=== PATIENT | female | born 1945 | race Hispanic/Latino ===

== ENCOUNTER → 2017-04-12 | Outpatient (CLI) | payer MEDICARE, OTHER ==
[2017-04-12 18:01] LABS: BASOPHILS # (AUTO) 0.1 (0.0-0.1); BASOPHILS % 0.9 % (0.0-1.0); EOSINOPHILS # (AUTO) 0.1 (0.0-0.4); EOSINOPHILS % 1.2 % (0.0-6.0); HEMATOCRIT 40.5 % (34.2-44.1); HEMOGLOBIN 13.3 g/dL (12.0-16.0); LYMPHOCYTES % 29.1 % (18.0-39.1); MEAN CORPUSCULAR HEMOGLOBIN 29.8 pg (28-32); MEAN CORPUSCULAR HGB CONC 32.8 g/dL (31-35); MEAN CORPUSCULAR VOLUME 90.6 fL (81-99); MONOCYTES # (AUTO) 0.6 (0.2-0.8); MONOCYTES % 9.6 % (4.4-11.3); NEUTROPHILS # (AUTO) 3.9 (2.1-6.9); NEUTROPHILS % 58.8 % (38.7-80.0); PLATELET COUNT 231 x10e3/uL (140-360); RED BLOOD COUNT 4.47 x10e6/uL (3.6-5.1); RED CELL DISTRIBUTION WIDTH 13.2 % (11.7-14.4)
[2017-04-12 18:27] LABS: INR 0.86; PROTHROMBIN TIME 12.2 seconds (11.9-14.5)
[2017-04-12 18:28] LABS: PARTIAL THROMBOPLASTIN TIME 29.4 seconds (23.8-35.5)
[2017-04-12 18:36] LABS: ALANINE AMINOTRANSFERASE 26 IU/L (0-55); ALBUMIN 4.5 g/dL (3.5-5.0); ALBUMIN/GLOBULIN RATIO 1.3 (0.8-2.0); ALKALINE PHOSPHATASE 89 IU/L (40-150); ANION GAP 13.7 mmol/L (8-16); BLOOD UREA NITROGEN 21 mg/dL (7-26); BUN/CREATININE RATIO 27 (6-25); CALCIUM 9.1 mg/dL (8.4-10.2); CARBON DIOXIDE 27 mmol/L (22-29); CHLORIDE 104 mmol/L (98-107); CREATININE, SERUM 0.77 mg/dL (0.57-1.11); EST GLOMERULAR FILTRATION RATE > 60 ML/MIN (60-); GLUCOSE 90 mg/dL (74-118); POTASSIUM 3.7 mmol/L (3.5-5.1); SODIUM 141 mmol/L (136-145)
[2017-04-12 18:43] LABS: HIV 1&2 AB SCREEN NON-REACTIVE (NONREACTIVE)
--- NOTE | 2017-04-12 19:30 | Diagnostic Imaging Report ---
PROCEDURE: Frontal and lateral views of the chest. COMPARISON: None. INDICATIONS: PRE-OP FOR LEFT HIP REPLACEMENT FINDINGS: Lines/tubes: None. Lungs: The lungs are well inflated and clear. There is no evidence of pneumonia or pulmonary edema. Pleura: There is no pleural effusion or pneumothorax. Heart and mediastinum: The heart and the mediastinum are normal. Bones: No acute bony abnormality. IMPRESSION: No acute cardiopulmonary disease. Dictated by: Celestino Moreira M.D. on 04/12/2017 at 19:40 Electronically approved by: Celestino Moreira M.D. on 04/12/2017 at 19:40
== END ==
LOC: RAD 17:38
PROVIDERS: ATTEND Internal Medicine
DX: Z01.818 Encounter for other preprocedural examination (principal)
CPT/HCPCS: 36415; 71020; 80053; 85025; 85610; 85730; 87390; 87522; G0433; G0435; 71046

== ENCOUNTER → 2018-01-11 | Day surgery (SDC) | payer MEDICARE, OTHER ==
[2018-01-07 17:09] LABS: BASOPHILS % 0.6 % (0.0-1.0); EOSINOPHILS # (AUTO) 0.1 (0.0-0.4); EOSINOPHILS % 1.1 % (0.0-6.0); HEMATOCRIT 42.6 % (34.2-44.1); HEMOGLOBIN 13.8 g/dL (12.0-16.0); LYMPHOCYTES # (AUTO) 1.9 (1.0-3.2); LYMPHOCYTES % 27.1 % (18.0-39.1); MEAN CORPUSCULAR HGB CONC 32.4 g/dL (31-35); MEAN CORPUSCULAR VOLUME 86.6 fL (81-99); MONOCYTES # (AUTO) 0.8 (0.2-0.8); MONOCYTES % 11.2 % (4.4-11.3); NEUTROPHILS # (AUTO) 4.2 (2.1-6.9); NEUTROPHILS % 59.7 % (38.7-80.0); PLATELET COUNT 255 x10e3/uL (140-360); RED BLOOD COUNT 4.92 x10e6/uL (3.6-5.1); RED CELL DISTRIBUTION WIDTH 19.5 % (11.7-14.4)
[2018-01-07 17:30] LABS: ANION GAP 17.1 mmol/L (8-16); BLOOD UREA NITROGEN 17 mg/dL (7-26); BUN/CREATININE RATIO 21 (6-25); CALCIUM 10.3 mg/dL (8.4-10.2); CARBON DIOXIDE 27 mmol/L (22-29); CHLORIDE 100 mmol/L (98-107); CREATININE, SERUM 0.81 mg/dL (0.57-1.11); EST GLOMERULAR FILTRATION RATE > 60 ML/MIN (60-); GLUCOSE 126 mg/dL (74-118); POTASSIUM 4.1 mmol/L (3.5-5.1); SODIUM 140 mmol/L (136-145)
--- NOTE | 2018-01-07 17:48 | Diagnostic Imaging Report ---
EXAMINATION: CHEST 2 VIEWS INDICATION: Anemia. Chest pain. Preop for surgery COMPARISON: None FINDINGS: TUBES and LINES: None. LUNGS: Lungs are well inflated. Lungs are clear. There is no evidence of pneumonia or pulmonary edema. PLEURA: No pleural effusion or pneumothorax. HEART AND MEDIASTINUM: The cardiomediastinal silhouette is unremarkable. BONES AND SOFT TISSUES: No acute osseous lesion. Soft tissues are unremarkable. UPPER ABDOMEN: No free air under the diaphragm. IMPRESSION: No acute thoracic abnormality. Signed by: Dr. Júnior Hinson M.D. on 01/07/2018 5:44 PM
[~2018-01-11] MED LIST: CALTRATE PLUS1 EACH PO; CYMBALTA30 MG PO; FENTANYL CITRATE/PF 100MCG/2 ML INJ ONE; FERROUS SULFAT325 M1 PO; HYDROCHLOROTHIA25 MG PO; LIDOCAINE HCL 2% LOCAL INJ 5 ML SDV VIAL INJ ONE; LIPITOR20 MG PO; LISINOPRIL10 MG PO; MAGNESIUM OXID400 MG PO; MIRAPEX0.125 MG PO; PROPOFOL IV EMULSION 10 MG/ML 20 ML VIAL ONE; VIT A PO; VIT D PO
--- OUTSIDE RECORDS SUMMARY | 2018-01-11 05:26 | XMS REPORT ---
Author Author Jordan Ty Organization [employer] Address Unknown Phone Unavailable Care Team Providers Care International Trade Specialist Name Role Phone Jordan Ty CP Unavailable Allergies No Known Allergies Problems Problem Type Condition Code Onset Dates Condition Status Problem Hip pain, left M25.552 Active Problem Primary osteoarthritis, 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 Problem Polyarthropathy M13.0 Active Problem Other osteoporosis without current pathological fracture M81.8 Active Medications No Known Medications Results No Known Results Summary Purpose eClinicalWorks Submission
--- OUTSIDE RECORDS SUMMARY | 2018-01-11 05:26 | XMS REPORT ---
Author Author Karie Yoo [facility] eClinical[employer] Address Unknown Phone Unavailable Care Team Providers Care Underground Bolting Machine Operator Name Role Phone Karie Yoo Unavailable Allergies, Adverse Reactions, Alerts Substance Reaction Event Type Scopolamine Info Not Available Drug Allergy Indocin Info Not Available Drug Allergy Celebrex stomach upset Drug Allergy Problems Problem Type Condition Code Onset Dates Condition Status Assessment Knee osteoarthritis M17.9 Active Problem Knee osteoarthritis M17.9 Active Problem Polyarthropathy M13.0 Active Problem Osteoarthritis M19.90 Active Problem Other osteoporosis without current pathological fracture M81.8 Active Problem Hip pain, left M25.552 Active Problem Vitamin D deficiency E55.9 Active Problem Primary osteoarthritis, 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 Medications Medication Code System Code Instructions Start Date End Date Status Dosage Prolia [facility] 97348454434 60 MG/ML Subcutaneous every 6 months Active as directed Tramadol HCl ND 16487177034 50 MG Orally At bedtime Active 1 tablet as needed Cymbalta ND 18833724547 30 MG Orally Twice a day Active 1 capsule Meloxicam ND 49324243241 15 MG Orally Once a day as needed Active 1 tablet Magnesium ND 68230334692 250 MG Orally Once a day Active 1 tablet with a meal Vitamin D ND 71139521597 2000 UNIT Orally BID Active 1 tablet Lipitor ND 12479227165 20 MG Orally Once a day Active 1 tablet Omeprazole ND 17556047565 20 MG Orally Once a day Active 1 capsule Potassium Chloride CR ND 0 20 MEQ Orally BID Active as directed Vitamin A [facility] 89257088098 8000 UNIT Orally Once a day Active 3 capsules Hydrochlorothiazide ND 08238448965 25 MG Orally Once a day Active 1 tablet in the morning Aspir-81 ND 02118924044 81 MG Orally Once a day Active 1 tablet Caltrate 600+D ND 69563990894 600-400 MG-UNIT Orally Twice a day Active 1 tablet with food Lisinopril ND 21668927717 20 MG Orally Once a day Active 1 tablet Vital Signs Date/Time: July 23, 2017 BMI 25.18 Index Weight 124.7 lbs Height 59 in Temperature 97.9 F Cardiac Monitoring Heart Rate 72 /min Blood Pressure Diastolic 64 mm Hg Blood Pressure Systolic 122 mm Hg Results No Known Results Summary Purpose eClinicalWorks Submission
--- OUTSIDE RECORDS SUMMARY | 2018-01-11 05:26 | XMS REPORT ---
Author Author Jonathan Delacruz Organization [employer] Address Unknown Phone Unavailable Care Team Providers Care Radiology Nurse Name Role Phone Jonathan Delacruz CP Unavailable Allergies, Adverse Reactions, Alerts Substance Reaction Event Type Scopolamine Info Not Available Drug Allergy Indocin Info Not Available Drug Allergy Celebrex stomach upset Drug Allergy Problems Problem Type Condition Code Onset Dates Condition Status Assessment Polyarthropathy M13.0 Active Problem Hip pain, left M25.552 Active Problem Primary osteoarthritis, 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 Problem Polyarthropathy M13.0 Active Assessment Other osteoporosis without current pathological fracture M81.8 Active Assessment Primary osteoarthritis, 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 Problem Other osteoporosis without current pathological fracture M81.8 Active Assessment Trochanteric bursitis, left hip M70.62 Active Medications Medication Code System Code Instructions Start Date End Date Status Dosage Magnesium ND 67410125284 250 MG Orally Once a day Active 1 tablet with a meal Vitamin A ND 17166608492 8000 UNIT Orally Once a day Active 3 capsules Prolia [facility] 98547789815 60 MG/ML Subcutaneous every 6 months Active as directed Lisinopril ND 71715599468 20 MG Orally Once a day Active 1 tablet Tramadol HCl ND 62869903846 50 MG Orally At bedtime Active 1 tablet as needed Cymbalta ND 93041105573 30 MG Orally Twice a day Active 1 capsule Potassium Chloride CR NDC 0 20 MEQ Orally BID Active as directed Hydrochlorothiazide ND 51488367271 25 MG Orally Once a day Active 1 tablet in the morning Lipitor ND 26166229449 20 MG Orally Once a day Active 1 tablet Vitamin D ND 23013557260 2000 UNIT Orally BID Active 1 tablet Omeprazole ND 35722125180 20 MG Orally Once a day Active 1 capsule Meloxicam ND 26248344607 15 MG Orally Once a day as needed Active 1 tablet Caltrate 600+D ND 00853454895 600-400 MG-UNIT Orally Twice a day Active 1 tablet with food Vital Signs Date/Time: Feb 19, 2017 BMI 24.50 Index Weight 121.3 lbs Height 59 in Temperature 97.9 F Cardiac Monitoring Heart Rate 72 /min Blood Pressure Diastolic 80 mm Hg Blood Pressure Systolic 118 mm Hg Results No Known Results Summary Purpose eClinicalWorks Submission
--- OUTSIDE RECORDS SUMMARY | 2018-01-11 05:26 | XMS REPORT ---
Author Jordan Dominguez Organization [employer] Address Unknown Phone Unavailable Care Team Providers Care Senior Java Developer Name Role Phone Jordan Ty CP Unavailable Allergies No Known Allergies Problems Problem Type Condition Code Onset Dates Condition Status Problem Knee osteoarthritis M17.9 Active Problem Polyarthropathy M13.0 Active Problem Osteoarthritis M19.90 Active Problem Other osteoporosis without current pathological fracture M81.8 Active Problem Hip pain, left M25.552 Active Problem Vitamin D deficiency E55.9 Active Problem Primary osteoarthritis, 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 Medications No Known Medications Results No Known Results Summary Purpose eClinicalWorks Submission
--- OUTSIDE RECORDS SUMMARY | 2018-01-11 05:26 | XMS REPORT ---
Author Author Jonathan Delacruz Organization [employer] Address Unknown Phone Unavailable Care Team Providers Care Javascript Software Engineer Name Role Phone Jonathan Delacruz CP Unavailable Allergies, Adverse Reactions, Alerts Substance Reaction Event Type Scopolamine Info Not Available Drug Allergy Indocin Info Not Available Drug Allergy Celebrex stomach upset Drug Allergy Problems Problem Type Condition Code Onset Dates Condition Status Problem Hip pain, left M25.552 Active Problem Primary osteoarthritis, 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 Problem Polyarthropathy M13.0 Active Assessment Hip pain, left M25.552 Active Assessment Polyarthropathy M13.0 Active Problem Other osteoporosis without current pathological fracture M81.8 Active Assessment Other osteoporosis without current pathological fracture M81.8 Active Medications Medication Code System Code Instructions Start Date End Date Status Dosage Vitamin D ND 19256977311 2000 UNIT Orally Once a day Active 1 tablet Cymbalta ND 40198162489 30 MG Orally Twice a day Active 1 capsule Caltrate 600+D ND 92890240077 600-400 MG-UNIT Orally Twice a day Active 1 tablet with food Omeprazole ND 58403245276 20 MG Orally Once a day Active 1 capsule Magnesium ND 07447694213 250 MG Orally Once a day Active 1 tablet with a meal Potassium Chloride CR NDC 0 20 MEQ Orally Active as directed Lipitor ND 26892048006 20 MG Orally Once a day Active 1 tablet Prolia ND 64020981604 60 MG/ML Subcutaneous every 6 months Dec 21, 2016 Active as directed Meloxicam ND 29874682545 15 MG Orally Once a day as needed June 12, 2017 Active 1 tablet Lisinopril ND 76564131005 20 MG Orally Once a day Active 1 tablet Hydrochlorothiazide ND 82675741872 25 MG Orally Three times a Week Active 1 tablet in the morning Tramadol HCl ND 49221780260 50 MG Orally At bedtime Active 1 tablet as needed Vitamin A ND 86404718362 8000 UNIT Orally Once a day Active 3 capsules Vital Signs Date/Time: Feb 12, 2017 BMI 24.66 Index Weight 118 lbs Height 58 in Temperature 98.4 F Cardiac Monitoring Heart Rate 76 /min Blood Pressure Diastolic 70 mm Hg Blood Pressure Systolic 124 mm Hg Results No Known Results Summary Purpose eClinicalWorks Submission
--- OUTSIDE RECORDS SUMMARY | 2018-01-11 05:26 | XMS REPORT ---
Author Author Jordan Ty Organization [employer] Address Unknown Phone Unavailable Care Team Providers Care Advertising Operations Manager Name Role Phone Jordan Ty CP Unavailable [...]
--- OUTSIDE RECORDS SUMMARY | 2018-01-11 05:26 | XMS REPORT ---
Author Author [facility] Address Unknown Phone Unavailable Care Team Providers Care Kier Boiler Name Role Phone Kirill GARRETT Unavailable Unavailable LAVELL LOVE Unavailable Unavailable Problems This patient has no known problems. Allergies, Adverse Reactions, Alerts This patient has no known allergies or adverse reactions. Medications This patient has no known medications. Results Test Description Test Time Test Comments Text Results Atomic Results Result Comments CHEST 2 VIEWS 2018-01-07 17:44:00 [place] [address] Patient Name: MADELYN TATE MR #: [id number] : 1945 Age/Sex: 72/F Req #: [id number] Adm Physician: Ordered by: HENRRY GARRETT MD Report #: [id number] Location: OR Room/Bed: Procedure: [id number] DX/CHEST 2 VIEWS Exam Date: 01/07/18 Exam Time: 1713 REPORT STATUS: Signed EXAMINATION: CHEST 2 VIEWS INDICATION: Anemia. Chest pain. Preop for surgery COMPARISON: None FINDINGS: TUBES and LINES: None. LUNGS: Lungs are well inflated. Lungs are clear. There is no evidence of pneumonia or pulmonary edema. PLEURA: No pleural effusion or pneumothorax. HEART AND MEDIASTINUM: The cardiomediastinal silhouette is unremarkable. BONES AND SOFT TISSUES: No acute osseous lesion. Soft tissues are unremarkable. UPPER ABDOMEN: No free air under the diaphragm. IMPRESSION: No acute thoracic abnormality. Signed by: Dr. Júnior Hinson M.D. on 01/07/2018 5:44 PM Dictated By: JÚNIOR HINSON MD, MD 43 Transcribed By: CAMILO on 01/07/181743 COPY TO: HENRRY GARRETT MD CHEST 2 VIEWS [place] [address] Patient Name: MADELYN TATE MR #: [id number] : 1945 Age/Sex: 72/F Req #: [id number] Adm Physician: Ordered by: LAVELL LOVE MD Report #: [id number] Location: [facility] Room/Bed: Procedure: [id number] DX/CHEST 2 VIEWS Exam Date: 04/12/17 Exam Time: 1821 REPORT STATUS: Signed PROCEDURE: Frontal and lateral views of the chest. COMPARISON: None. INDICATIONS: PRE-OP FOR LEFT HIP REPLACEMENT FINDINGS: Lines/tubes: None. Lungs: The lungs are well inflated and clear. There is no evidence of pneumonia or pulmonary edema. Pleura: There is no pleural effusion or pneumothorax. Heart and mediastinum: The heart and the mediastinum are normal. Bones: No acute bony abnormality. IMPRESSION: No acute cardiopulmonary disease. Dictated by: Celestino Barbosa M.D. on 04/12/2017 at 19:40 Electronically approved by: Celestino Barbosa M.D. on 04/12/2017 at 19:40 Dictated By: CELESTINO BARBOSA MD 39 Transcribed By: JOHN on 04/12/171939 COPY TO: LVAELL LOVE MD
--- OUTSIDE RECORDS SUMMARY | 2018-01-11 05:26 | XMS REPORT | Continuity of Care Document ---
Author Author Rebelle Bridal [facility] [place] Interface Address Unknown Phone Unavailable Problems Problem Status Onset Date Classification Date Reported Comments Source Hip pain, left Active Problem 07/26/2017 Haider Brasweller Primary osteoarthritis, right hand Active Problem 07/26/2017 Haider Brasweller Polyarthropathy Active Problem 07/26/2017 Haider Ty Other osteoporosis without current pathological fracture Active Problem 07/26/2017 Haider Brasweller Knee osteoarthritis Active Diagnosis 07/26/2017 Haider Brasweller Osteoarthritis Active Problem 07/26/2017 Haider Ty Vitamin D deficiency Active Problem 07/26/2017 Haider Karson Trochanteric bursitis, left hip Active Diagnosis 02/20/2017 Haider Ty Medications Medication Details Route Status Patient Instructions Ordering Provider Order Date Source Meloxicam 1 tablet Orally Active 15 MG Orally Once a day as needed F[place]oya 06/12/2017 Haider Ty Prolia as directed Subcutaneous Active 60 MG/ML Subcutaneous every 6 months Fakoya 12/21/2016 Haider Ty Magnesium 1 tablet with a meal Orally Active 250 MG Orally Once a day Fredo Haider Ty Vitamin A 3 capsules Orally Active 8000 UNIT Orally Once a day Fredo Haider Ty Prolia as directed Subcutaneous Active 60 MG/ML Subcutaneous every 6 months Fredo Haider Ty Lisinopril 1 tablet Orally Active 20 MG Orally Once a day Fredo Haider Ty Tramadol HCl 1 tablet as needed Orally Active 50 MG Orally At bedtime Fredo Haider Ty Cymbalta 1 capsule Orally Active 30 MG Orally Twice a day Fredo Haider Ty Potassium Chloride CR as directed Orally Active 20 MEQ Orally BID Fredo Haider Ty Hydrochlorothiazide 1 tablet in the morning Orally Active 25 MG Orally Once a day Fredo Haider Ty Lipitor 1 tablet Orally Active 20 MG Orally Once a day Fredo Haider Ty Vitamin D 1 tablet Orally Active 2000 UNIT Orally BID Fredo Haider Ty Omeprazole 1 capsule Orally Active 20 MG Orally Once a day Fredo Haider Ty Meloxicam 1 tablet Orally Active 15 MG Orally Once a day as needed Fredo Haider Ty Caltrate 600+D 1 tablet with food Orally Active 600-400 MG-UNIT Orally Twice a day Fredo Haider Ty Aspir-81 1 tablet Orally Active 81 MG Orally Once a day Fredo [place] Ty Allergies, Adverse Reactions, Alerts Substance Category Reaction Severity Reaction type Status Date Reported Comments Source Scopolamine Adverse Reaction Info Not Available Adverse Reaction Active 07/23/2017 Haider Brasweller Indocin Adverse Reaction Info Not Available Adverse Reaction Active 07/23/2017 Haider Brasweller Celebrex Adverse Reaction stomach upset Adverse Reaction Active 07/23/2017 Haider Brasweller Immunizations Immunization Date Given Site Status Last Updated Comments Source Results Order Name Results Value Reference Range Date Interpretation Comments Source Vital Signs Vital Sign Value Date Comments Source Weight 124.7 07/23/2017 Haider Ty Height 59 07/23/2017 Haider Ty Temperature Oral (F) 97.9 F 07/23/2017 [facility] Ty Heart Rate 72 07/23/2017 Ah[facility] Ty Diastolic (mm Hg) 64 07/23/2017 Haider Ty Systolic (mm Hg) 122 07/23/2017 [facility] Ty Weight 125 07/09/2017 Ha[facility] Ty Height 59 07/09/2017 Ha[facility] Ty Temperature Oral (F) 98.1 F 07/09/2017 [facility] Ty Heart Rate 70 07/09/2017 Ha[facility] Ty Diastolic (mm Hg) 62 07/09/2017 [facility] Ty Systolic (mm Hg) 112 07/09/2017 [facility] Ty Weight 121.3 02/19/2017 Ha[facility] Ty Height 59 02/19/2017 Haider Ty Temperature Oral (F) 97.9 F 02/19/2017 [facility] Ty Heart Rate 72 02/19/2017 Ha[facility] Ty Diastolic (mm Hg) 80 02/19/2017 Ha[facility] Ty Systolic (mm Hg) 118 02/19/2017 [facility] Ty Weight 118 02/12/2017 Haider Ty Height 58 02/12/2017 Haider Ty Temperature Oral (F) 98.4 F 02/12/2017 Ha[facility] Ty Heart Rate 76 02/12/2017 Haider Yt Diastolic (mm Hg) 70 02/12/2017 Haider Ty Systolic (mm Hg) 124 02/12/2017 Haider Ty Encounters Location Location Details Encounter Type Encounter Number Reason For Visit Attending Provider ADM Date DC Date Status Source Procedures Procedure Code Date Perfomer Comments Source
--- OUTSIDE RECORDS SUMMARY | 2018-01-11 05:26 | XMS REPORT ---
Author Author Jordan Ty Organization e[employer]Works Address Unknown Phone Unavailable Care Team Providers Care Cable Dispatcher Name Role Phone Jordan Ty CP Unavailable [...]
--- OUTSIDE RECORDS SUMMARY | 2018-01-11 05:26 | XMS REPORT ---
Author Author Karie Yoo [facility] eClinicalWorks Address Unknown Phone Unavailable Care Team Providers Care Manager Biostatistics Name Role Phone Karie Yoo Unavailable Allergies, Adverse Reactions, Alerts Substance Reaction Event Type Scopolamine Info Not Available Drug Allergy Indocin Info Not Available Drug Allergy Celebrex stomach upset Drug Allergy Problems Problem Type Condition Code Onset Dates Condition Status Assessment Osteoarthritis M19.90 Active Assessment Other osteoporosis without current pathological fracture M81.8 Active Assessment Knee osteoarthritis M17.9 Active Problem Knee osteoarthritis M17.9 Active Problem Polyarthropathy M13.0 Active Problem Osteoarthritis M19.90 Active Problem Other osteoporosis without current pathological fracture M81.8 Active Problem Hip pain, left M25.552 Active Problem Vitamin D deficiency E55.9 Active Problem Primary osteoarthritis, 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 Medications Medication Code System Code Instructions Start Date End Date Status Dosage Lipitor ND 71239623688 20 MG Orally Once a day Active 1 tablet Vitamin A ND 19290473043 8000 UNIT Orally Once a day Active 3 capsules Lisinopril ND 62600218064 20 MG Orally Once a day Active 1 tablet Aspir-81 ND 36997471629 81 MG Orally Once a day Active 1 tablet Tramadol HCl ND 32775492837 50 MG Orally At bedtime Active 1 tablet as needed Caltrate 600+D ND 25137093743 600-400 MG-UNIT Orally Twice a day Active 1 tablet with food Magnesium ND 97965412647 250 MG Orally Once a day Active 1 tablet with a meal Potassium Chloride CR NDC 0 20 MEQ Orally BID Active as directed Hydrochlorothiazide ND 67573185570 25 MG Orally Once a day Active 1 tablet in the morning Omeprazole ND 65212033356 20 MG Orally Once a day Active 1 capsule Prolia [facility] 81662854376 60 MG/ML Subcutaneous every 6 months Active as directed Vitamin D ND 42552994555 2000 UNIT Orally BID Active 1 tablet Meloxicam ND 88146585046 15 MG Orally Once a day as needed Active 1 tablet Cymbalta [facility] 36361737196 30 MG Orally Twice a day Active 1 capsule Vital Signs Date/Time: July 09, 2017 BMI 25.24 Index Weight 125 lbs Height 59 in Temperature 98.1 F Cardiac Monitoring Heart Rate 70 /min Blood Pressure Diastolic 62 mm Hg Blood Pressure Systolic 112 mm Hg Results Name Result Date Reference Range Unit Abnormality Flag IdentRA ----RHEUMATOID FACTOR <14 [id number] <14 IU/mL ----CYCLIC CITRULLINATED PEPTIDE (CCP) AB (IGG) <16 [id number] Units ----14.3.3 ETA PROTEIN <0.2 [id number] <0.2 ng/mL RAFAEL IFA SCREEN W/REFL TO TITER AND PATTERN, IFA ----RAFAEL SCREEN, IFA NEGATIVE [id number] NEGATIVE N Summary Purpose eClinicalWorks Submission
[2018-01-11 09:35] VITALS: BP 151/82
== END | disposition home or self-care (01) ==
LOC: OR 05:24
PROVIDERS: ATTEND Surgery
DX: D50.0 Iron deficiency anemia secondary to blood loss (chronic) (principal); K29.50 Unspecified chronic gastritis without bleeding; B96.81 Helicobacter pylori [H. pylori] as the cause of diseases classified elsewhere; K64.8 Other hemorrhoids; K21.9 Gastro-esophageal reflux disease without esophagitis; K58.9 Irritable bowel syndrome, unspecified; R19.4 Change in bowel habit; R10.9 Unspecified abdominal pain; I10 Essential (primary) hypertension; E78.5 Hyperlipidemia, unspecified; E03.9 Hypothyroidism, unspecified; Z01.810 Encounter for preprocedural cardiovascular examination; Z01.812 Encounter for preprocedural laboratory examination; Z01.818 Encounter for other preprocedural examination; Z88.1 Allergy status to other antibiotic agents; Z88.8 Allergy status to other drugs, medicaments and biological substances
CPT/HCPCS: 36415; 43239; 45378; 71046; 80048; 85025; 88305; 88312; 93005; J2001; J2704

== ENCOUNTER → 2020-02-05 | Day surgery (SDC) | payer MEDICARE, OTHER ==
[2020-02-02 12:56] LABS: BASOPHILS % 0.7 % (0.0-1.0); EOSINOPHILS % 0.5 % (0.0-6.0); HEMATOCRIT 41.3 % (34.2-44.1); HEMOGLOBIN 13.8 g/dL (12.0-16.0); LYMPHOCYTES # (AUTO) 1.5 (1.0-3.2); LYMPHOCYTES % 24.2 % (18.0-39.1); MEAN CORPUSCULAR HEMOGLOBIN 31.2 pg (28-32); MEAN CORPUSCULAR HGB CONC 33.4 g/dL (31-35); MEAN CORPUSCULAR VOLUME 93.4 fL (81-99); MONOCYTES # (AUTO) 0.6 (0.2-0.8); MONOCYTES % 9.4 % (4.4-11.3); NEUTROPHILS # (AUTO) 3.9 (2.1-6.9); PLATELET COUNT 235 x10e3/uL (140-360); RED BLOOD COUNT 4.42 x10e6/uL (3.6-5.1); RED CELL DISTRIBUTION WIDTH 12.2 % (11.7-14.4)
[2020-02-02 13:06] LABS: INR 0.91; PROTHROMBIN TIME 12.7 seconds (11.9-14.5)
[2020-02-02 13:07] LABS: PARTIAL THROMBOPLASTIN TIME 29.2 seconds (23.8-35.5)
[2020-02-02 13:14] LABS: ANION GAP 11.9 mmol/L (8-16); BLOOD UREA NITROGEN 14 mg/dL (7-26); BUN/CREATININE RATIO 19 (6-25); CALCIUM 9.6 mg/dL (8.4-10.2); CARBON DIOXIDE 30 mmol/L (22-29); CHLORIDE 101 mmol/L (98-107); CREATININE, SERUM 0.74 mg/dL (0.57-1.11); EST GLOMERULAR FILTRATION RATE > 60 ML/MIN (60-); GLUCOSE 103 mg/dL (74-118); POTASSIUM 3.9 mmol/L (3.5-5.1); SODIUM 139 mmol/L (136-145)
--- NOTE | 2020-02-02 13:54 | Diagnostic Imaging Report ---
EXAMINATION: CHEST 2 VIEWS INDICATION: Pre-operative COMPARISON: Chest radiograph 01/07/2018 FINDINGS: LINES/TUBES:None LUNGS:The lungs are well-inflated. No focal consolidation or pulmonary edema. PLEURA:No pleural effusion or pneumothorax. MEDIASTINUM:The cardiomediastinal silhouette appears normal in size and shape. Atherosclerotic calcifications of the thoracic aorta. BONES/SOFT TISSUES:No acute osseous injury. ABDOMEN:No free air under the diaphragm. IMPRESSION: No focal pneumonia or pulmonary edema. Signed by: Chang Gilliland MD on 02/02/2020 1:50 PM
[~2020-02-05] MED LIST changes: +ASPIRIN EC81 MG PO; +BUPIVACAINE HCL 0.5% INJ 30 ML VIAL INJ ONE; +CEFAZOLIN SOD 1 GM/NS 50ML 50 ML IV ONE; +DEXAMETHASONE SOD PHOS INJ 4 MG/ML VIAL ONE; +FISH OIL 1,2001 EAC8 PO; +HYDROXYCHLOROQ200 MG PO; +MIDAZOLAM HCL 2 MG/2 ML VIAL ONE; +OMEPRAZOLE40 MG PO; +ONDANSETRON HCL INJ 2MG/ML 2ML 2 MG/ML VIAL ONE; +POTASSIUM CHLO20 ME1 PO; +PREVAGEN PO; +PROLIA60 MG/1 ML IM; +SEVOFLURANE INHAL SOLN 250 ML PEN BTL ONE; +VITAMIN C500 M4 PO; +VITAMIN D325 MCG PO
--- NOTE | 2020-02-05 10:42 | Operative Report ---
DATE OF PROCEDURE: 02/05/2020 SURGEON: Zana Snyder MD PREOPERATIVE DIAGNOSIS: Right carpal tunnel syndrome. PRINCIPLE PROCEDURE: Right carpal tunnel release. ANESTHESIA: General. INDICATIONS: The patient is a 74-year-old woman, who presents with severe recurrent right carpal tunnel syndrome, and was taken to surgery for right carpal tunnel release. PROCEDURE IN DETAIL: After induction of anesthesia, the patient was placed on the operating table in the supine position with the right arm abducted over a hand table. The right hand, wrist, and forearm were prepped and draped circumferentially in sterile fashion. The tourniquet was inflated over the upper arm to 250 mmHg. A small midline incision was created over the median palmar crease of the wrist just distal to the distal flexor crease of the wrist. The subcutaneous fat was divided. The scar layer from the previous surgery was carefully divided. The transverse carpal ligament was found to be present and intact along the distal aspect of the exposure. The transverse carpal ligament was incised with a #15 C blade until the underlying median nerve came into view. The plane of dissection was then developed superficial to the median nerve and followed proximally and the scar layer was carefully divided to fully expose and decompress the median nerve in the region of the carpal tunnel. More distally, the recurrent motor branch of the nerve was preserved within its fat pad. Excellent decompression was thus achieved. The point of maximum compression appeared to have been at 2.5 cm distal to the distal flexor crease of the wrist, where the flexor retinaculum was intact from the previous surgery. Excellent decompression had been achieved. The wound was irrigated with bacitracin solution. Meticulous hemostasis was secured. Retractor was removed. The subcutaneous layer was closed with 3-0 Vicryl suture. The skin was closed with a 3-0 nylon suture in a horizontal mattress fashion. A dressing was applied. The patient was awakened, extubated, and taken to postanesthesia care unit in stable condition. No intraoperative complications were encountered. Estimated blood loss was minimal. Zana Snyder MD PP/MODL /[id number]
[2020-02-05 11:10] VITALS: BP 148/72
== END | disposition home or self-care (01) ==
LOC: OR 07:02
PROVIDERS: ATTEND Neurological Surgery
DX: G56.01 Carpal tunnel syndrome, right upper limb (principal); E11.9 Type 2 diabetes mellitus without complications; E78.5 Hyperlipidemia, unspecified; E03.9 Hypothyroidism, unspecified; Z01.810 Encounter for preprocedural cardiovascular examination; Z01.812 Encounter for preprocedural laboratory examination; Z20.828 Contact with and (suspected) exposure to other viral communicable diseases; Z88.1 Allergy status to other antibiotic agents; Z88.8 Allergy status to other drugs, medicaments and biological substances; Z79.82 Long term (current) use of aspirin
CPT/HCPCS: 36415 ×2; 64721; 71046; 80048; 82948; 85025; 85610; 85730; 93005; J0690; J1100; J2001; J2250; J2405; J2704; J3010; U0002

== ENCOUNTER 2020-09-29 15:51 | Outpatient (RCR) | payer MEDICARE, OTHER ==
[~2020-09-29 15:51] MED LIST changes: -BUPIVACAINE HCL 0.5% INJ 30 ML VIAL INJ ONE; -CEFAZOLIN SOD 1 GM/NS 50ML 50 ML IV ONE; -DEXAMETHASONE SOD PHOS INJ 4 MG/ML VIAL ONE; -FENTANYL CITRATE/PF 100MCG/2 ML INJ ONE; -LIDOCAINE HCL 2% LOCAL INJ 5 ML SDV VIAL INJ ONE; -MIDAZOLAM HCL 2 MG/2 ML VIAL ONE; -ONDANSETRON HCL INJ 2MG/ML 2ML 2 MG/ML VIAL ONE; -PROPOFOL IV EMULSION 10 MG/ML 20 ML VIAL ONE; -SEVOFLURANE INHAL SOLN 250 ML PEN BTL ONE
== END 2020-10-02 ==
LOC: OT 15:51
PROVIDERS: ATTEND Neurological Surgery
DX: M99.61 Osseous and subluxation stenosis of intervertebral foramina of cervical region (principal)

== ENCOUNTER → 2020-11-02 | Outpatient (RCR) | payer MEDICARE, OTHER | LOC: OT 10-06 16:08 | PROVIDERS: ATTEND Neurological Surgery | DX: M99.61 Osseous and subluxation stenosis of intervertebral foramina of cervical region (principal); R53.1 Weakness; R27.9 Unspecified lack of coordination ==

== ENCOUNTER 2020-11-24 16:36 | Outpatient (RCR) | payer MEDICARE, OTHER | END 2020-12-02 | LOC: OT 16:36 | PROVIDERS: ATTEND Neurological Surgery | DX: M99.61 Osseous and subluxation stenosis of intervertebral foramina of cervical region (principal) ==

== ENCOUNTER → 2021-01-11 | Day surgery (SDC) | payer MEDICARE, OTHER ==
[2021-01-07 12:39] LABS: BASOPHILS % 0.8 % (0.0-1.0); EOSINOPHILS # (AUTO) 0.1 (0.0-0.4); EOSINOPHILS % 1.4 % (0.0-6.0); HEMATOCRIT 42.1 % (34.2-44.1); HEMOGLOBIN 13.7 g/dL (12.0-16.0); LYMPHOCYTES # (AUTO) 1.4 (1.0-3.2); LYMPHOCYTES % 28.5 % (18.0-39.1); MEAN CORPUSCULAR HEMOGLOBIN 30.2 pg (28-32); MEAN CORPUSCULAR HGB CONC 32.5 g/dL (31-35); MEAN CORPUSCULAR VOLUME 92.9 fL (81-99); MONOCYTES # (AUTO) 0.6 (0.2-0.8); MONOCYTES % 12.8 % (4.4-11.3); NEUTROPHILS # (AUTO) 2.8 (2.1-6.9); NEUTROPHILS % 56.1 % (38.7-80.0); PLATELET COUNT 220 x10e3/uL (140-360); RED BLOOD COUNT 4.53 x10e6/uL (3.6-5.1); RED CELL DISTRIBUTION WIDTH 12.3 % (11.7-14.4)
[2021-01-07 12:54] LABS: ANION GAP 14.8 mmol/L (8-16); CALCIUM 8.9 mg/dL (8.4-10.2); CREATININE, SERUM 0.72 mg/dL (0.57-1.11); POTASSIUM 3.8 mmol/L (3.5-5.1)
[~2021-01-11] MED LIST changes: +BUPIVACAINE HCL 0.5% INJ 30 ML VIAL INJ ONE; +EPHEDRINE SULFATE INJ 50 MG/ML VIAL ONE; +FENTANYL CITRATE/PF 100MCG/2 ML INJ ONE; +LIDOCAINE HCL 1% LOCAL INJ 20 ML VIAL ONE; +LIDOCAINE HCL 2% LOCAL INJ 5 ML SDV VIAL INJ ONE; +ONDANSETRON HCL INJ 2MG/ML 2ML 2 MG/ML VIAL ONE; +POVIDONE IODINE 0.05% 0.05 % ML PO ONE; +PROPOFOL IV EMULSION 10 MG/ML 20 ML VIAL ONE; +SEVOFLURANE INHAL SOLN 250 ML PEN BTL ONE; +SODIUM CHLORIDE 0.9% 50ML 100 ML ONE
[2021-01-11 09:50] VITALS: BP 143/65
== END | disposition home or self-care (01) ==
LOC: OR 05:45
PROVIDERS: ATTEND Orthopaedic Surgery
DX: G56.21 Lesion of ulnar nerve, right upper limb (principal); M06.9 Rheumatoid arthritis, unspecified; M19.90 Unspecified osteoarthritis, unspecified site; M54.9 Dorsalgia, unspecified; M54.2 Cervicalgia; R53.1 Weakness; I10 Essential (primary) hypertension; E78.5 Hyperlipidemia, unspecified; R01.1 Cardiac murmur, unspecified; K21.9 Gastro-esophageal reflux disease without esophagitis; R73.03 Prediabetes; Z01.810 Encounter for preprocedural cardiovascular examination; Z01.812 Encounter for preprocedural laboratory examination; Z20.822 Contact with and (suspected) exposure to COVID-19; Z79.82 Long term (current) use of aspirin
CPT/HCPCS: 36415; 64718; 80048; 85025; 93005; J0690; J2001 ×2; J2405; J2704; J3010; U0002

== ENCOUNTER 2021-02-23 09:00 | Outpatient (RCR) | payer MEDICARE, OTHER ==
[~2021-02-23 09:00] MED LIST changes: -BUPIVACAINE HCL 0.5% INJ 30 ML VIAL INJ ONE; -EPHEDRINE SULFATE INJ 50 MG/ML VIAL ONE; -FENTANYL CITRATE/PF 100MCG/2 ML INJ ONE; -LIDOCAINE HCL 1% LOCAL INJ 20 ML VIAL ONE; -LIDOCAINE HCL 2% LOCAL INJ 5 ML SDV VIAL INJ ONE; -ONDANSETRON HCL INJ 2MG/ML 2ML 2 MG/ML VIAL ONE; -POVIDONE IODINE 0.05% 0.05 % ML PO ONE; -PROPOFOL IV EMULSION 10 MG/ML 20 ML VIAL ONE; -SEVOFLURANE INHAL SOLN 250 ML PEN BTL ONE; -SODIUM CHLORIDE 0.9% 50ML 100 ML ONE
== END 2021-03-04 ==
LOC: OT 09:00
PROVIDERS: ATTEND Orthopaedic Surgery
DX: G56.21 Lesion of ulnar nerve, right upper limb (principal)
CPT/HCPCS: 97010 ×2; 97110 ×4; 97140; 97165; L3702

== ENCOUNTER 2021-03-09 09:03 | Outpatient (RCR) | payer MEDICARE, OTHER | END 2021-04-04 | LOC: OT 09:03 | PROVIDERS: ATTEND Orthopaedic Surgery | DX: G56.21 Lesion of ulnar nerve, right upper limb (principal) ==

== ENCOUNTER 2024-09-04 10:14 | Observation (INO) | payer MEDICARE, OTHER ==
[~2024-09-04] VITALS: Ht 142.2 cm; Wt 52.2 kg
[2024-09-04] VITALS (7 sets, daily range): BP systolic 117–134; BP diastolic 47–58; PULSE 72–95; RESP 17–20; TEMP 98; O2SAT 96–100
[2024-09-04] MEDS: CELECOXIB 100 MG CAP PO SCH (09:00)
[2024-09-04] MEDS: LACTATED RINGER'S 1,000 ML ONE (09:37)
[2024-09-04] MEDS: CEFAZOLIN SODIUM 2 GM ONE (09:37)
[2024-09-04 09:43] LABS: BASOPHILS % 0.7 % (0.0-1.0); EOSINOPHILS % 1.5 % (0.0-6.0); LYMPHOCYTES % 23.9 % (18.0-39.1); MONOCYTES % 12.3 % (4.4-11.3); NEUTROPHILS % 61.3 % (38.7-80.0); RED CELL DISTRIBUTION WIDTH 12.3 % (11.7-14.4)
[~2024-09-04 10:14] MED LIST changes: +DOCUSATE SODIUM 100 MG CAP PO PRN; +HYDROCODON-ACE1 EA12 PO; +LISINOPRIL-HCT1 EAC1 PO; +MELOXICAM7.5 MG PO; +ONDANSETRON HCL INJ 2MG/ML 2ML 2 MG/ML VIAL IV PRN; +ROPIVACAINE/EPI/CLONIDINE/KET 50 ML SYRINGE INJ ONE; +TIZANIDINE HCL4 M1 PO
[2024-09-04 10:21] LABS: EST GLOMERULAR FILTRATION RATE 71.0 ML/MIN (>=60)
[2024-09-04] MEDS ORDERED: LIDOCAINE HCL 2% LOCAL INJ 5 ML SDV VIAL INJ ONE (10:54)
[2024-09-04] MEDS ORDERED: PROPOFOL IV EMULSION 10 MG/ML 20 ML VIAL ONE ×3 (10:54→12:46)
[2024-09-04] MEDS ORDERED: SUCCINYLCHOLINE CHLORIDE 20 MG/ML 10ML VIAL ONE (10:54)
[2024-09-04] MEDS ORDERED: FENTANYL CITRATE/PF 100MCG/2 ML INJ ONE (11:24)
[2024-09-04] MEDS ORDERED: ONDANSETRON HCL INJ 2MG/ML 2ML 2 MG/ML VIAL ONE (11:46)
[2024-09-04] MEDS ORDERED: DEXAMETHASONE SOD PHOS INJ 4 MG/ML SDV ONE (11:46)
[2024-09-04] MEDS ORDERED: METOCLOPRAMIDE HCL 10 MG/2ML VIAL ONE (11:46)
[2024-09-04] MEDS ORDERED: ACETAMINOPHEN 1000 MG/100 ML 100 ML IV ONE (11:46)
[2024-09-04] MEDS ORDERED: HYDROMORPHONE 2MG/ML ONE (11:51)
[2024-09-04] MEDS ORDERED: SIMETHICONE 80 MG CHEW PO PRN (16:15)
[2024-09-04] MEDS ORDERED: BENZONATATE 100 MG CAP PO PRN (16:15)
[2024-09-04] MEDS ORDERED: POTASSIUM CHLORIDE 20 MEQ TAB CR PO PRN (16:15)
[2024-09-04] MEDS ORDERED: DEXTROSE 50% SYRINGE 50 ML IV PRN (16:15)
[2024-09-04] MEDS ORDERED: HYDRALAZINE HCL 20 MG/ML VIAL IV PRN (16:15)
[2024-09-04] MEDS ORDERED: MELATONIN 5 MG TABLET PO PRN (16:15)
[2024-09-04] MEDS ORDERED: ALBUTEROL/IPRATROPIUM 3 ML NEB NEB PRN (16:15)
[2024-09-04] MEDS ORDERED: ACETAMINOPHEN 325 MG TAB PO PRN (16:15)
[2024-09-04] MEDS ORDERED: DOCUSATE SODIUM 100 MG CAP PO PRN (16:15)
[2024-09-04] MEDS ORDERED: LIDOCAINE 4% PATCH TP PRN (16:15)
[2024-09-04] MEDS ORDERED: DIPHENHYDRAMINE HCL 25 MG CAP PO PRN (16:15)
[2024-09-04] MEDS: CEFAZOLIN SODIUM 2 GM in SODIUM CHLORIDE 0.9% 100 ML IV SCH (18:34)
[2024-09-04] MEDS: SODIUM CHLORIDE 0.9% 250ML 250 ML ONE (18:42)
[2024-09-04] MEDS: DULOXETINE HCL 30 MG DELAYED RELEASE PO SCH (21:14)
[2024-09-04] MEDS: ASPIRIN 81 MG CHEW TAB PO SCH (21:14)
[2024-09-04] MEDS: ENOXAPARIN SOD INJ 40 MG/0.4 ML SYR SC SCH (21:15)
[2024-09-05 03:36] VITALS: BP 120/49; PULSE 90; RESP 18; TEMP 97.8; O2SAT 98
[2024-09-05] MEDS: HYDROCODONE/APAP 7.5MG-325MG 1 EA TAB PO PRN (04:37)
[2024-09-05 05:36] LABS: BASOPHILS % 0.2 % (0.0-1.0); EOSINOPHILS % 0.0 % (0.0-6.0); LYMPHOCYTES % 6.8 % (18.0-39.1); MONOCYTES % 13.0 % (4.4-11.3); NEUTROPHILS % 79.7 % (38.7-80.0); RED CELL DISTRIBUTION WIDTH 12.3 % (11.7-14.4)
[2024-09-05 05:57] LABS: EST GLOMERULAR FILTRATION RATE 74.0 ML/MIN (>=60)
[2024-09-05 07:40] VITALS: PULSE 81; RESP 20; O2SAT 98
[2024-09-05 08:43] VITALS: BP 112/47; PULSE 83; RESP 18; TEMP 98.5; O2SAT 98
[2024-09-05 09:00] VITALS: BP 109/47; PULSE 83; RESP 18; TEMP 98.5; O2SAT 98
[2024-09-05] MEDS: LISINOPRIL 20 MG TAB PO SCH (09:00)
[2024-09-05] MEDS: HYDROCHLOROTHIAZIDE 25 MG TAB PO SCH (09:00)
[2024-09-05] MEDS: PANTOPRAZOLE SOD 40 MG TABEC PO SCH (09:35)
[2024-09-05] MEDS: ATORVASTATIN 20 MG TAB PO SCH (09:35)
[2024-09-05 10:45] VITALS: BP 114/43; PULSE 90; RESP 17; TEMP 98.9; O2SAT 98
[2024-09-05 13:20] VITALS: PULSE 78; RESP 20; O2SAT 97
== END 2024-09-05 15:30 | disposition home or self-care (01) ==
LOC: OR 10:14 → PACU V 15:06 → MED/SURG 16:39
PROVIDERS: ADMIT Orthopaedic Surgery Adult Reconstructive Orthopaedic Surgery; ATTEND Orthopaedic Surgery Adult Reconstructive Orthopaedic Surgery
DX: M16.11 Unilateral primary osteoarthritis, right hip (principal); E78.5 Hyperlipidemia, unspecified; I10 Essential (primary) hypertension; M06.9 Rheumatoid arthritis, unspecified; K21.9 Gastro-esophageal reflux disease without esophagitis; Z87.442 Personal history of urinary calculi; F41.8 Other specified anxiety disorders
CPT/HCPCS: 27130; 36415 ×2; 72170; 80048 ×2; 85025 ×2; 86850; 86900; 93005; 94799 ×2; 97110; 97116; 97162; 97530 ×2; C1713 ×4; C1776 ×2; G0378 ×2; J0131; J1100; J1171; J1650; J2003; J2405; J2470; J2704; J2765; J7050 ×3; J7121; J0330